=== PATIENT | male | born 1990 | race Caucasian/White ===

== ENCOUNTER 2024-01-09 14:32 | Emergency (ER) | payer SELFPAY ==
[~2024-01-09] VITALS: Ht 188 cm; Wt 120.2 kg
[2024-01-09 14:55] VITALS: BP 129/85; TEMP 97.9
[2024-01-09] MEDS ORDERED: ONDANSETRON 4 MG TAB.RAPDIS ONE ×2 (15:18→15:19)
[2024-01-09] MEDS ORDERED: LORAZEPAM 1 MG TABLET ONE (15:18)
[2024-01-09] MEDS: ONDANSETRON 4 MG TAB.RAPDIS SL ONE (15:22)
[2024-01-09] MEDS: LORAZEPAM 1 MG TABLET PO ONE (15:33)
[2024-01-09 16:16] VITALS: O2SAT 100
== END 2024-01-09 16:17 | disposition home or self-care (01) ==
LOC: ER 15:33
DX: F10.129 Alcohol abuse with intoxication, unspecified (principal); Y90.9 Presence of alcohol in blood, level not specified
CPT/HCPCS: 99283; Q0162 ×2

== ENCOUNTER 2024-02-08 00:06 | Emergency (ER) | payer SELFPAY ==
[~2024-02-08] VITALS: Ht 188 cm; Wt 124.7 kg
[2024-02-08] MEDS ORDERED: MORPHINE SULFATE INJ 4 MG/ML DISP.SYRIN ONE ×2 (00:38→01:27)
[2024-02-08] MEDS: MORPHINE SULFATE INJ 2 MG/ML DISP.SYRIN IV ONE ×2 (00:40→01:30)
[2024-02-08] MEDS ORDERED: methylPREDNISolone SOD SUCC 125 MG/2ML VIAL ONE (01:58)
[2024-02-08] MEDS ORDERED: KETOROLAC TROMETHAMINE INJ 30 MG/ML VIAL ONE (01:58)
[2024-02-08] MEDS: methylPREDNISolone SOD SUCC 125 MG/2ML VIAL IV ONE (02:04)
[2024-02-08] MEDS: KETOROLAC TROMETHAMINE INJ 30 MG/ML VIAL IV ONE (02:05)
[2024-02-08] MEDS ORDERED: PRED20TA PO (02:40)
[2024-02-08 02:58] VITALS: BP 129/80; TEMP 98; O2SAT 99
== END 2024-02-08 02:59 | disposition home or self-care (01) ==
LOC: ER 00:08
DX: M10.9 Gout, unspecified (principal); M25.532 Pain in left wrist
CPT/HCPCS: 99284; 96374; 96375; 96376; 73130; 73110; J2270 ×2; J2919; J1885

== ENCOUNTER 2024-02-23 08:53 | Emergency (ER) | payer MEDICAID ==
[~2024-02-23] VITALS: Ht 188 cm; Wt 79.4 kg
[~2024-02-23 08:53] MED LIST: PRED20TA PO
[2024-02-23 09:03] VITALS: BP 131/77; TEMP 98.5
[2024-02-23] MEDS ORDERED: INDO50CA92 PO (09:24)
[2024-02-23] MEDS ORDERED: HYDR-4279 PO (09:24)
[2024-02-23] MEDS ORDERED: METH4TAB3 PO (09:24)
[2024-02-23] MEDS: KETOROLAC TROMETHAMINE 15 MG/ML VIAL IM ONE (09:30)
[2024-02-23] MEDS ORDERED: KETOROLAC TROMETHAMINE 15 MG/ML VIAL ONE (09:41)
[2024-02-23 09:54] VITALS: O2SAT 95
[2024-02-23] MEDS ORDERED: HYDR-3980 PO (11:01)
== END 2024-02-23 10:06 | disposition home or self-care (01) ==
LOC: ER 09:03
DX: M10.9 Gout, unspecified (principal); M25.532 Pain in left wrist; M25.432 Effusion, left wrist; Z79.52 Long term (current) use of systemic steroids
CPT/HCPCS: 29125; 96372; 99283; J1885

== ENCOUNTER 2024-08-02 12:34 | Emergency (ER) | payer OTHER ==
[~2024-08-02] VITALS: Ht 188 cm; Wt 122.5 kg
[~2024-08-02 12:34] MED LIST changes: +HYDR-3980 PO; +HYDR-4279 PO; +INDO50CA92 PO; +METH4TAB3 PO
[2024-08-02 13:03] VITALS: BP 164/80; TEMP 98.5
[2024-08-02 13:34] VITALS: O2SAT 98
== END 2024-08-02 13:35 | disposition home or self-care (01) ==
LOC: ER 12:35
DX: B33.8 Other specified viral diseases (principal); Z79.52 Long term (current) use of systemic steroids; Z79.899 Other long term (current) drug therapy

== ENCOUNTER 2025-03-19 11:23 | Emergency (ER) | payer OTHER ==
[~2025-03-19] VITALS: Ht 188 cm; Wt 122.5 kg
[2025-03-19 12:21] LABS: PLATELET COUNT (AUTO) 251 K/uL (150-450); RED BLOOD CELL COUNT(AUTO) 5.20 MIL/uL (4.5-6.0); RED CELL DISTRIBUTION WIDTH 13.7 % (11.5-15.0); WHITE BLOOD COUNT (AUTO) 7.7 K/uL (4.3-11.0)
[2025-03-19 12:32] LABS: CALCIUM, SERUM 8.6 mg/dL (8.5-10.1); CREATININE 1.1 mg/dL (0.6-1.3); SODIUM SERUM 140.0 mmol/L (136-145); UREA NITROGEN, BLOOD 14.0 mg/dL (7-18)
[2025-03-19 12:39] LABS: ALCOHOL, BLOOD 379.0 mg/dL (0-10); ASPARTATE AMINOTRANSFERASE 48.0 U/L (15-37); TOTAL PROTEIN, SERUM 8.9 g/dL (6.4-8.2)
[2025-03-19 13:01] LABS: APPEARANCE,URINE CLEAR (CLEAR); BLOOD, URINE 2+ Ery/uL (NEGATIVE); LEUKOCYTE ESTERASE ,URINE NEGATIVE (NEGATIVE); NITRITE, URINE NEGATIVE (NEGATIVE); UGLUCOSE NEGATIVE (NEGATIVE)
[2025-03-19 13:02] LABS: ADD URINE CULTURE YES; HYALINE CASTS, URINE Moderate /LPF (None Seen); SQUAMOUS EPITHELIAL CELL,UR 0-2 /HPF (None Seen)
[2025-03-19 13:59] LABS: AMPHETAMINE, URINE NEGATIVE (NEGATIVE); BARBITURATE, URINE NEGATIVE (NEGATIVE); BENZODIAZEPINE, URINE NEGATIVE (NEGATIVE); CANNABINOID, URINE NEGATIVE (NEGATIVE); COCCAINE, URINE NEGATIVE (NEGATIVE); OPIATE, URINE NEGATIVE (NEGATIVE)
[2025-03-19] MEDS ORDERED: CHLORDIAZEPOXIDE HCL 25 MG CAPSULE ONE ×2 (15:45→20:36)
[2025-03-19] MEDS: CHLORDIAZEPOXIDE HCL 25 MG CAPSULE PO ONE ×2 (15:49→20:40)
[2025-03-19 19:30] VITALS: TEMP 98.9
[2025-03-19 20:00] VITALS: BP 136/86; O2SAT 95
== END 2025-03-19 22:06 | disposition short-term general hospital (02) ==
LOC: ER 11:23
DX: F10.129 Alcohol abuse with intoxication, unspecified (principal); F14.90 Cocaine use, unspecified, uncomplicated; I10 Essential (primary) hypertension; Z79.52 Long term (current) use of systemic steroids; Z88.2 Allergy status to sulfonamides; Y90.8 Blood alcohol level of 240 mg/100 ml or more
CPT/HCPCS: 36415; 80048-TC; 80076-TC; 81001; 85025-TC; 87086-TC; G0480